=== PATIENT | male | born 1965 | race Caucasian/White ===

== ENCOUNTER 2020-03-29 23:48 | Emergency (ER) | payer MEDICARE ==
[~2020-03-29] VITALS: Ht 182.9 cm; Wt 100.0 kg
[2020-03-30] MEDS ORDERED: LORAZEPAM 2MG/ML CPJ IV STA (00:10)
[2020-03-30 00:52] LABS: BASOPHILS % 0.5 % (0.0-2.0); EOSINOPHILS % 2.3 % (0.0-5.0); HEMATOCRIT. 38.2 % (42.0-52.0); LYMPHOCYTES % 22.5 % (20.0-50.0); MEAN CORPUSCULAR HEMOGLOBIN 28.6 pg (28.0-32.0); MEAN CORPUSCULAR VOLUME 84.4 fL (80.0-94.0); MEAN PLATELET VOLUME 7.3 fl (7.4-10.4); MONOCYTES % 8.8 % (2.0-8.0); NEUTROPHILS % 65.9 % (40.0-76.0); PLATELET 284 x1000/uL (130-400); RED BLOOD CELL COUNT 4.53 mill/uL (4.7-6.1); RED CELL DISTRIBUTION WIDTH 14.1 % (11.6-14.6)
[2020-03-30 01:00] LABS: CHLORIDE 104 mEq/L (98-107)
[2020-03-30] MEDS ORDERED: LORAZEPAM 0.5MG TABLET PO ONE (01:00)
[2020-03-30 01:04] LABS: ETHANOL BLOOD < 10 mg/dL
[2020-03-30 01:26] LABS: CLARITY URINE CLEAR (CLEAR); COLOR URINE YELLOW (YELLOW); KETONES URINE TRACE (NEGATIVE); LEUKOCYTE ESTERASE URINE TRACE (NEGATIVE); NITRITE URINE NEGATIVE (NEGATIVE); OCCULT BLOOD URINE NEGATIVE (NEGATIVE); PROTEIN URINE NEGATIVE (NEGATIVE)
[2020-03-30 01:48] LABS: *AMPHETAMINES SCREEN URINE NEGATIVE (NEGATIVE); *BARBITURATES SCREEN URINE NEGATIVE (NEGATIVE); *BENZODIAZEPINES SCREEN URINE NEGATIVE (NEGATIVE); *COCAINE SCREEN URINE NEGATIVE (NEGATIVE)
[2020-03-30 01:49] LABS: CANNABINOID URINE SCREEN PRESUMTIVE POSITIVE (NEGATIVE); METHADONE URINE SCREEN NEGATIVE (NEGATIVE); OPIATES URINE SCREEN NEGATIVE (NEGATIVE); PHENCYCLIDINE URINE SCREEN NEGATIVE (NEGATIVE)
[2020-03-30] MEDS ORDERED: AMLODIPINE 5MG TABLET PO ONE (04:30)
[2020-03-30] MEDS ORDERED: ACETAMINOPHEN 325MG TABLET PO ONE ×2 (08:00→22:15)
[2020-03-30] MEDS: PAROXETINE HCL 10MG TABLET PO SCH (12:30)
[2020-03-30] MEDS ORDERED: LORAZEPAM 1MG TABLET PO ONE ×2 (15:00→19:15)
[2020-03-30] MEDS ORDERED: NICOTINE 21MG PATCH TD ONE (19:15)
[2020-03-30] MEDS ORDERED: NICOTINE 21MG PATCH TD NR (19:30)
[2020-03-30] MEDS: OLANZAPINE 10MG TABLET PO SCH (21:45)
[2020-03-30] MEDS ORDERED: DIPHENHYDRAMINE 50MG CAPSULE PO ONE (22:15)
[2020-03-31] MEDS ORDERED: AMLODIPINE 5MG TABLET PO ONE (10:30)
[2020-03-31] MEDS: PAROXETINE HCL 10MG TABLET PO SCH (10:38)
[2020-03-31] MEDS ORDERED: LORAZEPAM 1MG TABLET PO ONE (17:00)
[2020-03-31] MEDS ORDERED: DIPHENHYDRAMINE 50MG/ML VIAL IM PRN (23:00)
[2020-03-31] MEDS: OLANZAPINE 10MG TABLET PO SCH (23:26)
[2020-04-01] MEDS: PAROXETINE HCL 10MG TABLET PO SCH (08:51)
[2020-04-01 10:52] VITALS: BP 127/98
== END 2020-04-01 11:26 ==
LOC: ER 23:48
DX: R45.851 Suicidal ideations (principal); F20.9 Schizophrenia, unspecified; R45.1 Restlessness and agitation; Z75.1 Person awaiting admission to adequate facility elsewhere; F15.10 Other stimulant abuse, uncomplicated; F12.90 Cannabis use, unspecified, uncomplicated; G47.00 Insomnia, unspecified; I10 Essential (primary) hypertension; Z91.14 Patient's other noncompliance with medication regimen
CPT/HCPCS: 82962; 93005; 99285; J1200; Q0163